=== PATIENT | female | born 1945 ===

== ENCOUNTER 2017-01-11 19:25 | Emergency (ER) | payer MEDICARE, MEDICAID ==
[2017-01-11 20:09] VITALS: TEMP 98.7
[2017-01-11] MEDS ORDERED: Sodium Chloride 0.9% 1,000 ML IV ONE (22:15)
[2017-01-11 22:49] LABS: BASO # 0.1 K/uL (0.0-0.2); BASO % 0.7 % (0.0-2.0); EOS # 0.2 K/uL (0.0-0.7); EOS % 1.5 % (0.0-4.0); HEMATOCRIT 37.7 % (34.0-47.0); LYMPH # 3.2 K/uL (1.0-4.3); LYMPH % 27.1 % (20.0-40.0); MEAN CORPUSCULAR HEMOGLOBIN 27.9 pg (27.0-31.0); MEAN CORPUSCULAR HGB CONC 31.7 g/dL (33.0-37.0); MEAN PLATELET VOLUME 9.5 fL (7.2-11.7); MONO # 1.2 K/uL (0.0-0.8); MONO % 10.2 % (0.0-10.0); RED CELL DISTRIBUTION WIDTH 15.9 % (11.5-14.5)
[2017-01-11 22:54] LABS: CHLORIDE 103 mmol/L (98-107)
[2017-01-11 22:55] LABS: POTASSIUM 4.1 mmol/L (3.6-5.2); SODIUM 139 mmol/L (132-148)
[2017-01-11 22:56] LABS: RBC URINE 120 /hpf (0-3); TRANSITIONAL EPITHIAL 2 /hpf (0-3); URINE BACTERIA MOD (<OCC); URINE BILIRUBIN NEGATIVE (NEGATIVE); URINE BLOOD 3+ (NEGATIVE); URINE COLOR Yellow (YELLOW); URINE GLUCOSE (UA) NORMAL (Normal); URINE KETONE NEGATIVE (NEGATIVE); URINE LEUKOCYTE ESTERASE 3+ Leu/uL (Negative); URINE PROTEIN 2+ mg/dL (NEGATIVE); URINE UROBILINOGEN NORMAL mg/dL (0.2-1.0); WBC CLUMPS MOD /hpf; WBC URINE 359 /hpf (0-5)
[2017-01-11 22:58] LABS: ALB/GLOB RATIO 1.2 (1.0-2.1); ALKALINE PHOSPHATASE 70 U/L (38-126); ALT/SGPT 19 U/L (9-52); AST/SGOT 22 U/L (14-36); BILIRUBIN,TOTAL 0.5 mg/dL (0.2-1.3); BLOOD UREA NITROGEN 17 mg/dL (7-17); CARBON DIOXIDE 25 mmol/L (22-30); GFR AFRICAN-AMERICAN > 60; GLUCOSE,RANDOM 125 mg/dL (65-105); TOTAL PROTEIN 7.8 g/dL (6.3-8.3)
[2017-01-11 22:59] LABS: CALCIUM 8.8 mg/dl (8.6-10.4)
--- NOTE | 2017-01-12 01:06 | C.PDOC ---
Time Seen by Provider: 01/11/17 21:55 Chief Complaint (Nursing): Female Genitourinary History Per: Patient, Family Onset/Duration Of Symptoms: Days (3) Current Symptoms Are (Timing): Still Present Severity: Moderate Location Of Pain/Discomfort: Suprapubic Quality Of Discomfort: "Pain" Associated Symptoms: Urinary Symptoms Alleviating Factors: None Additional History Per: Prior Records Abnormal Vaginal Bleeding: No Past Medical History Reviewed: Historical Data, Nursing Documentation, Vital Signs Vital Signs: Last Vital Signs Temp 98.7 F 01/11/17 20:04 Pulse 76 01/11/17 20:04 Resp 16 01/11/17 20:04 BP 137/85 01/11/17 20:04 Pulse Ox 97 01/11/17 20:04 - Medical History PMH: Diabetes, HTN, Hypothyroidism Surgical History: No Surg Hx Family History: States: Unknown Family Hx - Social History Hx Alcohol Use: No Hx Substance Use: No - Immunization History Hx Tetanus Toxoid Vaccination: No Hx Influenza Vaccination: No Hx Pneumococcal Vaccination: No Review Of Systems Except As Marked, All Systems Reviewed And Found Negative. Constitutional: Negative for: Weakness Cardiovascular: Negative for: Chest Pain Respiratory: Negative for: Cough, Shortness of Breath Gastrointestinal: Negative for: Vomiting, Diarrhea Genitourinary: Positive for: Dysuria, Frequency Musculoskeletal: Negative for: Neck Pain, Back Pain Skin: Negative for: Rash Neurological: Negative for: Weakness, Numbness, Seizures, Altered Mental Status Physical Exam - Physical Exam Appears: Non-toxic, No Acute Distress Skin: Normal Color, Warm, Dry, No Rash Head: Atraumatic, Normacephalic Eye(s): bilateral: PERRL, EOMI Neck: Normal ROM, Supple Cardiovascular: Rhythm Regular Respiratory: Normal Breath Sounds, No Accessory Muscle Use Gastrointestinal/Abdominal: Soft, Tenderness (suprapubic) Back: No CVA Tenderness Extremity: Normal ROM Neurological/Psych: Oriented x3, Normal Motor, Normal Sensation ED Course And Treatment - Laboratory Results Result Diagrams: 01/11/17 22:42 01/11/17 22:42 Lab Interpretation: Abnormal Interpretation Of Abnormal: UTI, urine C&S sent. O2 Sat by Pulse Oximetry: 97 Pulse Ox Interpretation: Normal - CT Scan/US CT abd/pelv Other Rad Studies (CT/US): Read By Radiologist, Radiology Report Reviewed CT/US Interpretation: There is mild prominence of the right renal plevis and proximal ureter with adjacent fat stranding. No definite obstructing calculus is identified. Progress Note: Pt feels much better and wants to go home. Reassessment Condition: Improved Disposition Counseled Patient/Family Regarding: Studies Performed, Diagnosis, Need For Followup, Rx Given - Disposition Referrals: Ilene Robison FNP [Advanced Practice Nurse] - Disposition: HOME/ ROUTINE Disposition Time: 01:07 Condition: IMPROVED Additional Instructions: Drink plenty of fluids. Follow up with your doctor within 1-2 days. Return to the ER if you develop fever, vomiting, back pain, worsening of symptoms or if you have any other concerns. Prescriptions: Ciprofloxacin [Cipro] 1 tab PO BID #14 tab Instructions: Urinary Tract Infection in Women (ED) Print Language: ANDORRAN - Clinical Impression Clinical Impression: UTI (urinary tract infection)
[2017-01-12 01:18] VITALS: BP 140/86; PULSE 67; RESP 18; O2SAT 96
--- NOTE | 2017-01-12 08:57 | CT ---
PROCEDURE: CT Abdomen and Pelvis without intravenous contrast HISTORY: Lower abdominal pain. Urinary symptoms. COMPARISON: None. TECHNIQUE: Multiple contiguous axial images were performed through the abdomen and pelvis without intravenous contrast. Subsequently, sagittal and coronal reformatted images were created and reviewed. Radiation dose: Total exam DLP = 932 mGy-cm. This CT exam was performed using one or more of the following dose reduction techniques: Automated exposure control, adjustment of the mA and/or kV according to patient size, and/or use of iterative reconstruction technique. FINDINGS: LOWER THORAX: Mild bibasilar atelectasis. Small hiatal hernia is present. LIVER: Unremarkable. No gross lesion or ductal dilatation. GALLBLADDER AND BILE DUCTS: Moderately distended gallbladder. PANCREAS: Unremarkable. No gross lesion or ductal dilatation. SPLEEN: Unremarkable. ADRENALS: Unremarkable. No mass. KIDNEYS AND URETERS: Mild prominence of the right renal pelvis and proximal ureter with adjacent fat stranding. No definite obstructing calculus is identified. VASCULATURE: Unremarkable. No aortic aneurysm. BOWEL: Moderate diverticulosis present in the sigmoid and descending colon. APPENDIX: Not well visualized. PERITONEUM: Unremarkable. No free fluid. No free air. LYMPH NODES: Unremarkable. No enlarged lymph nodes. BLADDER: Unremarkable. REPRODUCTIVE: Unremarkable. BONES: Moderate degenerative changes present. OTHER FINDINGS: A portion of the appendix is felt to be visualized and unremarkable. Moderate fat containing hernia in the right anterolateral lower abdomen. Mild atherosclerotic calcification in the aorta. Small fat containing left inguinal hernia. Numerous benign phleboliths in the pelvis. IMPRESSION: Mild prominence of the right renal pelvis and proximal ureter with adjacent fat stranding. No definite obstructing calculus is identified. This finding may be related to a recently passed calculus or pyelonephritis. Clinical correlation. Gallbladder is moderately distended. No calcified gallstones are evident. Clinical correlation and or correlation with ultrasound may be helpful if clinically indicated. Additional findings as above. These findings were preliminarily reported at 12:25 a.m. on 01/12/[address] Amada Brown from [employer].
== END 2017-01-12 01:19 | disposition home or self-care (01) ==
LOC: C.ER 19:25
DX: N39.0 Urinary tract infection, site not specified (principal); I10 Essential (primary) hypertension; E11.9 Type 2 diabetes mellitus without complications; E03.9 Hypothyroidism, unspecified
CPT/HCPCS: 74176; 80053; 81001; 83690; 85025; 87086; 96361; 96374; 99284; J1885; J7040